=== PATIENT | female | born 1945 | race Caucasian/White ===

== ENCOUNTER 2016-03-05 11:47 | Outpatient (CLI) | payer BC, MEDICARE ==
[2016-03-05 13:20] LABS: ALT (SGPT) 18 U/L (0-55); AST (SGOT) 17 U/L (5-34); Alkaline Phosphatase 90 U/L (40-150); Anion Gap 14 mmol/L (10-20); BUN (Urea Nitrogen) 17 mg/dL (9.8-20.1); Bilirubin, Total 0.5 mg/dL (0.2-1.2); Calc. Creatinine Clearance 0 mL/min (70-130); Calcium 9.4 mg/dL (7.8-10.44); Carbon Dioxide 27 mmol/L (23-31); Chloride 105 mmol/L (98-107); Estimated GFR-MDRD 56; Globulin 2.7 g/dL (2.4-3.5); LDL Cholesterol, Calculated 76 mg/dL; Protein, Total 6.8 g/dL (5.8-8.1)
[2016-03-05 13:35] LABS: Hemoglobin A1c 5.8 % (4.0-6.0)
== END 2016-03-05 11:48 | disposition home or self-care (01) ==
LOC: NAVSJIPCSP 11:47
PROVIDERS: ATTEND Internal Medicine
DX: E11.9 Type 2 diabetes mellitus without complications (principal); I11.9 Hypertensive heart disease without heart failure; E78.5 Hyperlipidemia, unspecified; Z79.899 Other long term (current) drug therapy
CPT/HCPCS: 36415; 80053; 80061; 83036

== ENCOUNTER 2016-08-26 11:19 | Outpatient (CLI) | payer MEDICARE ==
[2016-08-26 12:19] LABS: #Eosinphils 0.1 thou/uL (0.0-0.7); #Lymphocytes 1.7 thou/uL (1.20-3.40); #Monocytes 0.5 thou/uL (0.11-0.59); %Basophils 0.5 % (0.0-1.0); %Eosinophils 0.8 % (0.0-10.0); %Lymphocytes 23.6 % (21.0-51.0); %Monocytes 7.2 % (0.0-10.0); %Neutrophils 67.8 % (42.0-75.0); Mean Corpuscular HGB CONC 32.1 g/dL (32.0-36.0); Mean Corpuscular Hemoglobin 30.3 pg (27.0-31.0); Mean Corpuscular Volume 94.2 fl (81.0-99.0); Mean Platelet Volume 8.2 fL (7.4-10.4); Platelet Count 286 thou/uL (130-400); RBC Distribution Width 12.2 % (11.5-14.5); Red Blood Cell (RBC) Count 4.63 mill/uL (4.20-5.40); White Blood Cell (WBC) Count 7.4 thou/uL (4.8-10.8)
[2016-08-26 12:35] LABS: ALT (SGPT) 14 U/L (8-55); AST (SGOT) 13 U/L (5-34); Alkaline Phosphatase 89 U/L (40-150); Anion Gap 15 mmol/L (10-20); BUN (Urea Nitrogen) 30 mg/dL (9.8-20.1); Bilirubin, Total 0.3 mg/dL (0.2-1.2); Calc. Creatinine Clearance 0 mL/min (70-130); Calcium 9.4 mg/dL (7.8-10.44); Carbon Dioxide 26 mmol/L (23-31); Cardiac Risk 3.4 (Less than 4.5); Chloride 103 mmol/L (98-107); Cholesterol 156 mg/dl (< 200 Desired); Estimated GFR-MDRD 44; Globulin 2.5 g/dL (2.4-3.5); Glucose 114 mg/dL (80-115); HDL Cholesterol 46 mg/dL (>60 Neg Risk); LDL Cholesterol, Calculated 72 mg/dL; Potassium 4.1 mmol/L (3.5-5.1); Protein, Total 6.5 g/dL (6.0-8.3); Sodium 140 mmol/L (136-145); Triglycerides 189 mg/dL (Less than 150)
[2016-08-26 12:49] LABS: Hemoglobin A1c 6.1 % (4.0-6.0)
== END 2016-08-26 11:20 | disposition home or self-care (01) ==
LOC: NAVSJIPCSP 11:19
PROVIDERS: ATTEND Internal Medicine
DX: E78.5 Hyperlipidemia, unspecified (principal); E11.9 Type 2 diabetes mellitus without complications; I11.9 Hypertensive heart disease without heart failure; Z79.899 Other long term (current) drug therapy
CPT/HCPCS: 36415; 80053; 80061; 83036; 85025

== ENCOUNTER 2017-05-14 12:11 | Outpatient (CLI) | payer MEDICARE ==
--- NOTE | 2017-05-14 14:25 | RAD ---
2 VIEWS RIGHT SHOULDER: Date: 05/14/17 COMPARISON: None. HISTORY: Contusion to right shoulder. FINDINGS: There is mild widening of the right acromioclavicular joint. The coracoclavicular joint does not appe ar widened. The glenohumeral relationship is not well assessed as no scapular Y view or axillary view is provided. There is no evidence for acute fracture. IMPRESSION: Widened AC joint suggesting an AC joint injury, acuity uncertain. Clinical correlation and considerat ion for further evaluation via MRI advised. POS: [facility]
--- NOTE | 2017-05-14 14:27 | RAD ---
3 VIEWS RIGHT SCAPULA: Date: 05/14/17 COMPARISON: None. HISTORY: Trauma, pain. FINDINGS: The scapular Y view demonstrates no evidence for dislocation. No evidence for a scapular fracture. IMPRESSION: No evidence for a scapular fracture or glenohumeral joint dislocation. POS: [facility]
== END 2017-05-14 12:12 | disposition home or self-care (01) ==
LOC: NAV RAD 12:11
PROVIDERS: ATTEND Internal Medicine
DX: S20.221A Contusion of right back wall of thorax, initial encounter (principal); S40.011A Contusion of right shoulder, initial encounter

== ENCOUNTER 2021-07-11 13:02 | Outpatient (CLI) | payer MEDICARE, OTHER | END 2021-07-11 13:03 | disposition home or self-care (01) | LOC: NAV RAD 13:02 | PROVIDERS: ATTEND Family Medicine | DX: R05.9 Cough, unspecified (principal) | CPT/HCPCS: 71046 ==